=== PATIENT | female | born 1955 | race Caucasian/White ===

== ENCOUNTER 2018-09-28 05:40 | Day surgery (SDC) | payer MEDICARE, BC ==
[~2018-09-28 05:40] MED LIST: ACETAMINOPHEN 1,000 MG/100 ML BTL IVPB ONE; CLINDAMYCIN 600MG/50ML PREMIX 600 MG/50 ML BAG IVPB ONE
[2018-09-28] MEDS ORDERED: BUPIVACAINE 0.5% (5MG/ML) PF 30ML VIAL IVP ONE (05:41)
[2018-09-28] MEDS ORDERED: BUPIVACAINE 0.25% MPF 30ML VIAL IVP ONE (05:41)
[2018-09-28] MEDS ORDERED: BUPIVACAINE LIPOSOME/PF 133MG/10ML VIAL IV ONE (05:41)
[2018-09-28] MEDS ORDERED: PROPOFOL 10 MG/ML VIAL IV ONE (05:41)
[2018-09-28] MEDS ORDERED: DEXAMETHASONE 4 MG/ML 1ML VIAL IVP ONE (05:41)
[2018-09-28] MEDS ORDERED: MIDAZOLAM HCL 2MG/2ML VIAL IV ONE (05:41)
[2018-09-28] MEDS ORDERED: SEVOFLURANE 250 ML INH ONE (05:41)
[2018-09-28] MEDS ORDERED: LIDOCAINE 2% MDV (20MG/ML) 20ML VIAL IV ONE (05:41)
[2018-09-28] MEDS ORDERED: KETOROLAC 30 MG/ML VIAL IVP ONE ×2 (05:41→09:16)
[2018-09-28] MEDS ORDERED: FENTANYL PF 100MCG/2ML VIAL IV ONE (05:41)
[2018-09-28 05:50] LABS: ABSOLUTE NEUTROPHIL COUNT 7.49; BASO % 0.3 % (0-6); EOS % 2.2 % (0-6); GRAN % 69.1 % (47-80); HEMATOCRIT 41.5 % (35.0-47.0); HEMOGLOBIN 13.5 gm/dl (11.6-16.0); LYMPH % 22.7 % (16-45); MEAN CELL VOLUME 100.2 fl (81-97); MEAN CORPUSCULAR HEMOGLOBIN 32.6 pg (27-33); MEAN CORPUSCULAR HGB CONC 32.5 g/dl (32-36); MEAN PLATELET VOLUME 9.7 fl (7.4-10.4); MONO % 5.7 % (0-9); PLATELET COUNT 354 K/uL (130-400); RED BLOOD COUNT 4.14 M/uL (3.80-5.40); RED CELL DISTRIBUTION WIDTH 13.2 % (11.5-14.5); WHITE BLOOD COUNT W/O DIFF 10.8 K/uL (4.2-12.2)
[2018-09-28] MEDS ORDERED: RINGERS SOLUTION,LACTATED 1,000 ML IV ONE ×2 (06:00→08:15)
[2018-09-28 06:02] LABS: CREATININE 1.3 mg/dL (0.5-0.9)
[2018-09-28] MEDS ORDERED: EPINEPHRINE 1 MG/ML AMPUL IJ ONE (08:31)
[2018-09-28] MEDS ORDERED: HYDROCODONE/APAP 5/325MG TABLET PO ONE (09:26)
--- NOTE | 2018-09-29 13:20 | Operative Note ---
DATE OF SURGERY: 09/28/2018 SURGEON: Christiano Barros DO PREOPERATIVE DIAGNOSES: 1. Tear of the right rotator cuff. 2. Impingement syndrome right shoulder. POSTOPERATIVE DIAGNOSES: 1. Tear of the right rotator cuff. 2. Impingement syndrome right shoulder. 3. Tear of the anterior glenoid labrum right shoulder. OPERATION: 1. Arthroscopic repair of the right rotator cuff. 2. Arthroscopic subacromial decompression and acromioplasty right shoulder. 3. Arthroscopic debridement anterior labrum right shoulder. DESCRIPTION OF PROCEDURE: This 63-year-old female was taken to the operating room and placed in the supine position on the operating room table. General anesthetic was administered. The right shoulder was prepped and draped in the usual sterile fashion after she had been placed in the beach chair position with all bony prominences well padded and head well secured. A posterior portal was established in the glenohumeral joint, and initial evaluation of the joint demonstrated evidence of fraying of the anterior glenoid labrum. An anterior portal was established, and probing demonstrated evidence of tearing of the anterior labrum but no detachment from the bony glenoid was identified anteriorly or anywhere circumferentially around the labrum. No degenerative changes of the articular cartilage were identified. There was normal appearance of the biceps tendon in the bicipital groove. No fraying of the tendon was identified. The patient had a full-thickness defect of the supraspinatus tendon with no significant retraction. The shaver was then placed in the anterior portal and debridement of the anterior glenoid labrum was performed and debridement of the undersurface of the rotator cuff also performed. We then placed the scope in the subacromial space and thorough subacromial decompression and acromioplasty were identified. Spurring was present anteriorly on the acromion. This was debrided with the rotating shaver. The tear of the supraspinatus was easily identified and it was debrided to healthy appearing tissue. We also debrided the tuberosity to prepare it for attachment to the supraspinatus. We then decided to repair this using the [employer] Speedbridge technique with a horizontal mattress modification. We placed 2 SwiveLock anchors 4.75 mm, one with a TigerTape and one with a FiberTape placed at the anterior margin of the tear and the second at the posterior margin of the tear adjacent to the articular cartilage. These sutures were then shuttled through the rotator cuff. An additional #2 FiberWire was placed in between the 2 FiberTapes as a supporting stitch in a horizontal mattress fashion. We then grasped one limb of each suture and placed it through a 3rd SwiveLock anchor which was then placed inferior to the anterior anchor and the sutures drawn down to pull itself down to the tuberosity. The anchor was impaled. The remaining 3 tails of suture were then placed through a 4th SwiveLock anchor which was placed inferior to the posterior anchor thus creating a lateral repair as well. We then put traction on these sutures bringing them down tightly to its anatomic position on the tuberosity, and the anchor was impaled. They were seen to be in satisfactory position, and the sutures were cut and the wound copiously irrigated and suctioned. The instruments were removed. The portals were closed with 4-0 nylon suture. Sterile dressings with an UltraSling were applied. The patient was taken to the recovery room in satisfactory condition. GROSS PATHOLOGY: This patient demonstrated a tear of the supraspinatus tendon which was respectable quality tissue and felt that a good repair was accomplished. The biceps tendon was normal. The anterior labrum was frayed and it was debrided in the manner described above. CC: Teddy [email or web address]
== END 2018-09-28 09:50 | disposition home or self-care (01) ==
LOC: SUR 05:40
PROVIDERS: ATTEND Orthopaedic Surgery
DX: M75.101 Unspecified rotator cuff tear or rupture of right shoulder, not specified as traumatic (principal); S43.431A Superior glenoid labrum lesion of right shoulder, initial encounter; M75.41 Impingement syndrome of right shoulder; I25.10 Atherosclerotic heart disease of native coronary artery without angina pectoris; I45.6 Pre-excitation syndrome; Z98.61 Coronary angioplasty status
CPT/HCPCS: 76942; 80048; 85025; C9290; J0171; J1885; J7120